=== PATIENT | female | born 1990 | race Caucasian/White ===

== ENCOUNTER 2021-06-01 23:40 | Observation (INO) ==
[2021-06-02 06:33] LABS: Influenza A PCR Negative (Negative); Influenza B PCR Negative (Negative); Resp. Syncytial Virus PCR Negative (Negative)
[2021-06-02 06:34] LABS: SARS-CoV-2 by PCR (In House) Positive (Negative)
[2021-06-02] MEDS ORDERED: Naloxone 0.4 MG/ML INJ IVP PRN (09:27)
[2021-06-02] MEDS ORDERED: Melatonin 3 MG TABLET PO PRN (09:27)
[2021-06-02] MEDS ORDERED: Acetaminophen 325 MG TABLET PO PRN (09:30)
[2021-06-02 11:12] LABS: Basophils # 0.1 K/mcL (0.0-0.2); Basophils % 0.6 %; Eosinophils # 0.2 K/mcL (0.0-0.6); Eosinophils % 1.1 %; Hematocrit 39.1 % (35.3-44.9); Hemoglobin 12.5 g/dL (11.5-15.4); Immature Granulocytes % 0.1 % (0-4); Lymphocytes # 6.8 K/mcL (0.6-4.6); Lymphocytes % 45.9 %; Mean Corpuscular Hemoglobin 30.1 pg (28.0-33.3); Mean Corpuscular Volume 94.2 fL (83.0-100.0); Mean Platelet Volume 10.1 fL (9.4-12.4); Monocytes # 1.2 K/mcL (0.0-1.3); Neutrophils # 6.5 K/mcL (1.6-8.9); Platelet Count 646 K/mcL (140-400); Red Blood Count 4.15 M/mcL (3.82-4.97); Red Cell Distribution Width 14.1 % (11.5-14.5); Segmented Neutrophils % 44.3 %; White Blood Count 14.7 K/mcL (4.3-11.1)
[2021-06-02 11:33] LABS: Ethanol < 10 mg/dL (Less than 10)
[2021-06-02] MEDS: Magnesium Oxide 400 MG TABLET PO SCH ×2 (12:57→20:48)
[2021-06-02] MEDS: Nicotine 14 MG PATCH.TD24 TD SCH (12:57)
[2021-06-02] MEDS: Aspirin 81 MG TAB.CHEW PO SCH (12:57)
[2021-06-02] MEDS: Famotidine 20 MG TABLET PO SCH (20:48)
[2021-06-02] MEDS: DEXTROAMPHETAMINE PO SCH (20:49)
[2021-06-02] MEDS: AMPHETAMINE PO SCH (20:49)
[2021-06-03] MEDS ORDERED: *HR* OxyCODONE/APAP 10/325 TABLET PO PRN (08:12)
[2021-06-03 08:29] VITALS: BP 106/70; TEMP 97.7
[2021-06-03 09:01] VITALS: PULSE 87; O2SAT 97
[2021-06-03] MEDS: Nicotine 14 MG PATCH.TD24 TD SCH (09:21)
[2021-06-03] MEDS: Magnesium Oxide 400 MG TABLET PO SCH (09:22)
[2021-06-03] MEDS: Famotidine 20 MG TABLET PO SCH (09:22)
[2021-06-03] MEDS: Aspirin 81 MG TAB.CHEW PO SCH (09:22)
[2021-06-03] MEDS: AMPHETAMINE PO SCH ×2 (10:05→10:52)
[2021-06-03] MEDS: DEXTROAMPHETAMINE PO SCH ×2 (10:05→10:52)
== END 2021-06-03 14:11 | disposition home or self-care (01) ==
LOC: 3NENU 23:40 → EMEROOARM 23:40 → SUATTDRO 06-02 08:47 → 3NENU 06-02 11:30
PROVIDERS: ADMIT Hospitalist; ATTEND Internal Medicine